=== PATIENT | female | born 1980 | race Caucasian/White ===

== ENCOUNTER 2021-01-24 10:06 | Emergency (ER) | payer SELFPAY ==
[2021-01-24 10:09] VITALS: BP 141/90; PULSE 108; RESP 18; TEMP 36.8; O2SAT 100
--- NOTE | 2021-01-24 10:37 | DI.RAD_ITS ---
EXAM: XR HAND RT COMPLETE CLINICAL HISTORY: dog bite. TECHNIQUE: 2D digital imaging was performed. COMPARISON: No exams were available for comparison FINDINGS: BONES: No acute fracture is present. No bony destructive lesion is seen. JOINTS: No dislocation present. SOFT TISSUE: Gauze overlying the region of the 3rd through 5th metacarpals slightly limiting the radi ographic detail. No foreign body. IMPRESSION: Unremarkable radiographs of the right hand. DATA REPOSITORY: RADIATION DOSE DELIVERED:
[2021-01-24] MEDS: Amoxicillin 875/Clav. 125 TAB PO (10:46)
--- NOTE | 2021-01-24 11:06 | NUR.NOTE ---
Nursing Note: Animal bite has been reported to [facility]. It has also been faxed to [facility], where Macho works. He is aware. Melida Avalos
--- NOTE | 2021-01-24 11:07 | W.ED.GENAD ---
Discharge Plan Disposition Patient Disposition: HOME Condition: Stable Discharge Details Clinical Impression: Dog bite of right hand Primary Care Provider: Henry Mcknight ED Provider: Saulo Flores Home Meds and New Rx's Prescriptions: New amoxicillin-pot clavulanate [Augmentin] 875-125 mg tablet 1 tab PO BID Qty: 20 RF: 0 Discharge Instructions Instructions: Animal Bite (ED) Additional Instructions: Augmentin as directed. [id number] Tylenol and/or Motrin as directed for discomfort. Rest, elevate, wear splint as needed, advance activity as tolerated. Change antibiotic dressing daily, Steri-Strips will come off on their own in approximately 5-7 days. Please watch for new or worsening symptoms and return to the ER for any concerns. Otherwise I recommend contacting your primary care provider for reevaluation and wound evaluation sometime early next week Medical Decision Making 40-year-old female presents for right hand dog bite, she is right-hand dominant. Will obtain x-ray to rule any foreign body and/or bony abnormality. Will update tetanus. All appropriate dog bite forms will be completed and animal control notified. Given on her dominant hand will initiate Augmentin therapy. We discussed pros and cons of approximation, will loosely approximate using Steri-Strips. X-ray unremarkable. Tetanus updated. Bites were thoroughly cleaned and loosely approximated. Splint applied. Patient tolerated well. No additional questions or concerns. Medical Records Medical records reviewed: Yes I reviewed the patient's medical records. Imaging Data Radiologic Study: Attestation: I personally reviewed and interpreted this imaging study as follows: Imaging: X-Ray Radiologist's impression: Right hand x-ray negative HPI General Mode of arrival: ambulatory. Date/Time Provider Initiated Documentation: 01/24/21 10:15. Limitations to Documentation: no limitations. Information obtained by: patient. HPI Narrative: This is a 40-year-old female, [id number], denies significant past medical history. She presents today for a right hand dog bite that occurred just prior to arrival. She was in [place], at her omdvhd-rj-oyq's house, when they are yfocj-[id number]-keesa dog who is protective because there is a in the house that her right hand. She sustained a laceration and puncture wound. Denies any other injury. Reports the dog appeared well and is up-to-date on all shots immunizations. She reports that she does not believe her tetanus is up-to-date. She denies any numbness, tingling, weakness. Reports pain is moderate however rest worse with movement. No additional concerns or complaints at this time. Related Data Home Medications Medication Instructions Recorded Confirmed amoxicillin-pot clavulanate 1 tab PO BID #20 tab 01/24/21 [Augmentin] Previous Rx's Medication Instructions Recorded amoxicillin-pot clavulanate 1 tab PO BID #20 tab 01/24/21 [Augmentin] Allergies Allergy/AdvReac Type Severity Reaction Status Date / Time No Known Allergies Allergy Unverified 01/24/21 10:15 General Stated Complaint: AnimalBite NAVID: 3 Review of Systems Constitutional Constitutional: Denies fever(s) and Denies weakness Musculoskeletal Musculoskeletal: Denies arthralgias, Denies numbness, Reports stiffness and Denies tingling Integumentary/Breasts Skin/Breast: Denies erythema Neurologic Neurologic: Denies numbness, Denies tingling and Denies weakness [facility] Surgical History Tonsillectomy and adenoidectomy (~2001) Also repair of deviated septum Social History Smoking/Tobacco Use Status: Never Smoking risk assessment performed?: Yes Alcohol Intake: current Alcohol Intake frequency: a few times a month Alcohol type: wine Drug use: Never Substance use type: does not use Do you feel safe at home: Yes Do you feel safe in your relationship?: Yes Exam Const General: cooperative, healthy appearing, comfortable and no acute distress Orientation: alert and awake [facility] Head: normal to inspection, normocephalic and atraumatic Eyes General: appearance normal, both eyes and all related structures Neck Neck: normal visual inspection, trachea midline and supple Resp Effort & Inspection: normal respiratory effort and able to speak in complete sentences Cardio Rate: regular rate Rhythm: regular rhythm Skin General skin exam: no rashes or lesions noted Neuro General: patient alert, patient awake, moves all extremities and no focal motor deficits Cognition: normal cognition Speech: speech normal Gait: normal gait Motor: muscle tone normal throughout Sensory Exam: no sensory deficits noted Extrem General: full ROM and capillary refill normal Hand/finger images: 1. Puncture wound 2. 2.5 cm laceration. No active bleeding from either laceration or puncture wound. Diffuse minimal swelling and discomfort. No ecchymosis, bony point tenderness, or foreign body. Normal capillary refill. Neuro, vascular, tendon intact. Patient able to fully close and extend her fingers and thumb Psych Appearance: grossly normal Mental Status: mental status grossly normal Course Vital Signs Vital signs: Vital Signs Temperature 36.8 C 01/24/21 10:09 Pulse 108 H 01/24/21 10:09 Respiratory Rate 18 01/24/21 10:09 Blood Pressure 141/90 H 01/24/21 10:09 Pulse Oximetry 100 01/24/21 10:09 Temperature 36.8 C 01/24/21 10:09 Temperature Source Skin 01/24/21 10:09 Pulse 108 H 01/24/21 10:09 Respiratory Rate 18 01/24/21 10:09 Respiratory Effort 01/24/21 10:20 Blood Pressure 141/90 H 01/24/21 10:09 Blood Pressure Position Sitting 01/24/21 10:09 Pulse Oximetry 100 01/24/21 10:09 Oxygen Delivery Method Room Air 01/24/21 10:09 Oxygen Flow Rate 0 01/24/21 10:09 Pain Level 7 01/24/21 10:09 Comment 01/24/21 10:09 Procedures Other Description: Right hand, using a total of 6 cc [id number] mixture of 1% lidocaine and 0.5% bupivacaine, I locally injected both the laceration and puncture wound. Patient tolerated well. The laceration was then extensively irrigated and scrubbed with Hibiclens. I then loosely approximated using benzoin and half-inch Steri-Strips. Patient tolerated well. The hand was then dressed and an ulnar thumb splint, volar, applied to the fourth and fifth digits down to the wrist. Patient tolerated well
[2021-01-24 11:59] VITALS: BP 136/94; PULSE 68; RESP 14; O2SAT 98
== END 2021-01-24 11:59 | disposition home or self-care (01) ==
PROVIDERS: Emergency Provider Physician Assistant; PCP Internal Medicine
DX: S61.411A Laceration without foreign body of right hand, initial encounter (principal); W54.0XXA Bitten by dog, initial encounter
CPT/HCPCS: 90471; 99283; 73130